=== PATIENT | male | born 1960 | race Caucasian/White ===

== ENCOUNTER 2020-02-01 16:03 | Day surgery (SDC) | payer BC ==
[2020-01-24 14:05] VITALS: BMI 25.8
--- NOTE | 2020-02-01 11:02 | HP ---
History & Physical Update - Physical Physical: No Change - Assessment Assessment: No Change - Plan Plan: No Change (Dr Víctor Greene) Currently as noted:: Dr Víctor Greene 01/24/2020
--- NOTE | 2020-02-01 14:37 | PN ---
Progress Note (short form) - Note Progress Note: 59M s/p LEFT MIGUEL POD #0. -Pain control. -DVT PPx: -Chemical: ASA 81mg PO BID x 6 weeks. -Mechanical: SCD's, ALEXA's. -Incentive spirometry. -PT/OT/Rehab, OOB. -WBAT B/L LE. -(+) Hip abduction pillow. -Maintain hip precautions. -f/u AM labs. -f/u trial of void (8 hours max). -Diet as tolerated. -f/u drain output. -Care per medical hospitalist team. -Discharge planning: f/u [facility] [place] [facility] 7-10 days after discharge; call for appointment: . -Will follow. Micah Daniel MD (Orthopaedic Surgery).
--- NOTE | 2020-02-01 14:41 | OP ---
Operative Note - Note: Operative Date: 02/01/20 Pre-Operative Diagnosis: Left hip DJD Operation: Left MIGUEL Implants: Dasha. Cup - Trident II-Tritanium 52mm. Poly - 52mm, symmetric. Stem - Accolade II, #5, high offset 127 deg NSA. Head - 28mm diameter Biolox/Delta Ceramic, standard length Surgeon: Micah Daniel Handle Rounder Operator: Kishore Dainel Anesthesiologist/WAGE AND SALARY ADMINISTRATOR: Janett Patel Anesthesia: Spinal Specimens Removed: Left femoral head Estimated Blood Loss (mls): 250 Drains & Tubes with Location: 1 x drain HemoVac Fluid Volume Replaced (mls): 900 (Crystalloid) Operative Report Dictated: Yes
[2020-02-01] MEDS: ACETAMINOPHEN 1000 MG/100 ML VIAL (NON FORMULARY) IVPB ONE ×2 (15:07→16:28)
[~2020-02-01 16:03] MED LIST: CEFAZOLIN 2 GM in DEXTROSE 5%-WATER - 50 ML IVPB ONE; EPHEDRINE SULFATE/0.9% NACL/PF 50 MG/10 ML SYRINGE NR ONE; LACTATED RINGERS SOLUTION 1,000 ML IV SCH; LIDOCAINE HCL/PF 2% SDV 5ML VIAL ONE; MAG HYDROX/AL HYDROX/SIMETH 30 ML UNIT-DOSE CUP PO PRN; MAGNESIUM HYDROX 2400MG/30ML ORAL SUSPENSION 30 ML CUP PO PRN; MIDAZOLAM HCL 2 MG/2 ML SINGLE DOSE VIAL ONE; ONDANSETRON 4 MG/2 ML VIAL IVPUSH PRN; ONDANSETRON 4 MG/2 ML VIAL ONE; PROPOFOL 20 ML ONE; ROPIVACAINE HCL 0.5% 30ML VIAL ONE; SODIUM CHLORIDE 0.9% P/F 10 ML VIAL IJ ONE; TRANEXAMIC ACID 1000 MG/10 ML VIAL IVPUSH ONE; TRANEXAMIC ACID 1000 MG/10 ML VIAL ONE; VANCOMYCIN 1 GM in D5W (PRE-DOCKED) 1,000 MG/250 ML IVPB ONE; VANCOMYCIN 1,000 MG VIAL (RESTRICTED TO ID ONLY) ONE; ceFAZolin SODIUM 1 GM VIAL ONE; oxyCODONE HCL 5 MG TABLET PO PRN
[2020-02-01] MEDS: oxyCODONE HCL 5 MG TABLET PO PRN ×2 (18:29→21:00)
[2020-02-01] MEDS: ACETAMINOPHEN 325 MG TABLET (FP) PO SCH (20:45)
[2020-02-01] MEDS: CEFAZOLIN 2 GM/D5W 2 GM/50 ML ML IVPB SCH (20:47)
[2020-02-01] MEDS ORDERED: PATIENT'S OWN MEDICATION (NON-FORMULARY) (Mesalamine [Pentasa] 500 MG) PO SCH ×2 (22:00)
[2020-02-01] MEDS: LOPERAMIDE HCL 2 MG CAPSULE PO SCH (22:38)
[2020-02-01] MEDS: oxyCODONE HCL 10 MG SUSTAINED ACTING TABLET PO SCH (22:38)
[2020-02-01] MEDS: ASPIRIN 81 MG CHEWABLE TABLETS PO SCH (22:38)
[2020-02-01] MEDS: SENNOSIDES/DOCUSATE COMBO (SENNA PLUS) TABLET (UD) PO SCH (22:39)
[2020-02-02] MEDS: traMADol HCL 50 MG TABLET PO PRN ×2 (00:21→08:19)
[2020-02-02] MEDS: ACETAMINOPHEN 325 MG TABLET (FP) PO SCH ×3 (02:21→15:19)
[2020-02-02] MEDS: CEFAZOLIN 2 GM/D5W 2 GM/50 ML ML IVPB SCH ×2 (02:21→07:55)
[2020-02-02] MEDS: oxyCODONE HCL 5 MG TABLET PO PRN ×5 (02:22→15:25)
[2020-02-02] MEDS ORDERED: HYDROmorphone HCl 2 MG/ML VIAL IVPB ONE (03:15)
[2020-02-02 08:06] LABS: CALCIUM 8.1 mg/dl (8.5-10); CREATININE 0.9 mg/dl (0.55-1.3); POTASSIUM 3.6 mmol/L (3.5-5.1)
[2020-02-02 08:11] LABS: HEMATOCRIT 34.2 % (35.4-49); HEMOGLOBIN 11.9 GM/dl (11.7-16.9); MCH 30.6 pg (25.7-33.7); MCHC 34.7 g/dl (32.0-35.9); MEAN CELL VOLUME 88.2 fl (80-96); MEAN PLT VOLUME 7.3 fl (7.5-11.1); PLATELET COUNT 195 K/MM3 (134-434); RBC 3.88 M/mm3 (4.00-5.60); RDW 11.9 % (11.9-15.9); WHITE BLOOD COUNT 10.8 K/mm3 (4.0-10.8)
--- NOTE | 2020-02-02 08:27 | PN ---
Progress Note (short form) - Note Progress Note: Surgery POD#1 right MIGUEL patient seen and examined on AM rounds c/o leg spasm and pain after the spinal wore off. He has not been OOB yet but he is voiding and tolerating his diet. He denies any CP,SOB, N/V/D, fever or chills. Vital Signs Temp 97.8 F 02/02/20 06:56 Pulse 77 02/02/20 06:56 Resp 18 02/02/20 06:56 BP 107/63 02/02/20 06:56 Pulse Ox 96 02/02/20 06:56 Intake & Output 02/01/20 02/01/20 02/02/20 11:59 23:59 11:59 Intake Total 1500 1875 Output Total 750 0 Balance 750 1875 Weight 170 lb Intake: IV 1000 1375 Lactated Ringers Solution 1375 1,000 ml @ 125 mls/hr IV ASDIR CORINNA Rx#: [id number] IVPB 100 Oral 500 400 Output: Drainage 0 0 Left Knee 0 0 Urine 500 Void 500 Estimated Blood Loss 250 Other: Voiding Method Urinal # Unmeasured Voids Void 2 Bowel Movement Yes Height 5 ft 8 in Body Mass Index (BMI) 25.8 Weight Measurement Method Standing Scale CBC, BMP 02/02/20 07:11 02/02/20 07:11 PE: A&Ox3, NAD Unlabored resp on RA Right hip, dressing c/d/i with surrounding tissue intact and no tracking erythema or evidence of collection or active d/c. Drain removed with tip fully intact and no active bleeding from drain site, dressing reinforced. B/L LE compartments soft, supple and non-tender with 5/5 dorsi/plantar flexion with +2 DP pulses Problem List - Problems (1) Status post total hip replacement, left Assessment/Plan: Progress Note: 59M s/p LEFT MIGUEL POD #1, doing well. -Pain control as discussed including home medications -DVT PPx: -Chemical: ASA 81mg PO BID x 6 weeks. -Mechanical: SCD's, ALEXA's. -Incentive spirometry. -PT/OT/Rehab, OOB. -WBAT B/L LE. -(+) Hip abduction pillow. -Maintain hip precautions. -f/u AM labs. -Diet as tolerated. -Care per medical hospitalist team. -Discharge planning: f/u [facility] [place] [facility] 7-10 days after discharge; call for appointment: . Code(s): Z96.642 - PRESENCE OF LEFT ARTIFICIAL HIP JOINT
[2020-02-02] MEDS ORDERED: diazePAM 5 MG TABLET PO SCH (09:00)
[2020-02-02] MEDS ORDERED: PANTOPRAZOLE 40 MG TABLET PO SCH (10:00)
[2020-02-02] MEDS ORDERED: ESCITALOPRAM OXALATE 10 MG TABLET PO SCH (10:00)
[2020-02-02] MEDS: ASPIRIN 81 MG CHEWABLE TABLETS PO SCH (10:46)
[2020-02-02] MEDS: oxyCODONE HCL 10 MG SUSTAINED ACTING TABLET PO SCH (10:47)
[2020-02-02] MEDS: LOPERAMIDE HCL 2 MG CAPSULE PO SCH (11:19)
[2020-02-02] MEDS: SENNOSIDES/DOCUSATE COMBO (SENNA PLUS) TABLET (UD) PO SCH (11:19)
--- NOTE | 2020-02-02 12:01 | HP ---
CHIEF COMPLAINT: Left hip pain HISTORY OF PRESENT ILLNESS: 59 year-old male with a PMH significant for HLD, colitis, kidney stones, anxi ety, and left hip avascular necrosis s/p left total hip arthroplasty on 02/01/[address] Micah Daniel. 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 Smoking: no Alcohol: no Drugs: no Allergies No Known Drug Allergies Allergy (Verified 01/24/20 13:19) Family history: father @ 99 lung cancer; mother @89 heart disease; 1 brother lung cancer, 3 brothers and 1 sister a&w HOME MEDICATIONS: Home Medications Medication Instructions Recorded Ascorbic Acid [Vitamin C] 500 mg PO DAILY 01/24/20 Escitalopram Oxalate [Lexapro -] 10 mg PO DAILY 01/24/20 Loperamide HCl [Imodium -] 4 mg PO BID 01/24/20 Mesalamine [Pentasa] 500 mg PO BID 01/24/20 Multivitamins [Tab-A-Vit -] 1 tab PO DAILY 01/24/20 Tramadol HCl 50 mg PO BID 01/24/20 Aspirin [ASA -] 81 mg PO BID tab.chew 02/02/20 Sennosides/Docusate Sodium 2 tablet PO BID PRN #60 tablet 02/02/20 [Pericolace -] REVIEW OF SYSTEMS CONSTITUTIONAL: Absent: fever, chills, diaphoresis, generalized weakness, malaise, loss of appetite, weight change HEENT: Absent: rhinorrhea, nasal congestion, throat pain, throat swelling, difficulty swallowing, mouth swelling, ear pain, eye pain, visual changes CARDIOVASCULAR: Absent: chest pain, syncope, palpitations, irregular heart rate, lightheadedness, peripheral edema RESPIRATORY: Absent: cough, shortness of breath, dyspnea with exertion, orthopnea, wheezing, stridor, hemoptysis GASTROINTESTINAL: Absent: abdominal pain, abdominal distension, nausea, vomiting, diarrhea, constipation, melena, hematochezia GENITOURINARY: Absent: dysuria, frequency, urgency, hesitancy, hematuria, flank pain, genital pain MUSCULOSKELETAL: Absent: myalgia, arthralgia, joint swelling, back pain, neck pain SKIN: Absent: rash, itching, pallor HEMATOLOGIC/IMMUNOLOGIC: Absent: easy bleeding, easy bruising, lymphadenopathy, frequent infections ENDOCRINE: Absent: unexplained weight gain, unexplained weight loss, heat intolerance, cold intolerance NEUROLOGIC: Absent: headache, focal weakness or paresthesias, dizziness, unsteady gait, seizure, mental status changes, bladder or bowel incontinence PSYCHIATRIC: Absent: anxiety, depression, suicidal or homicidal ideation, hallucinations. PHYSICAL EXAMINATION Vital Signs - 24 hr 02/01/20 02/01/20 02/01/20 14:26 14:30 14:35 Temperature 97.6 F Pulse Rate 64 61 57 L Respiratory 18 21 H 17 Rate Blood Pressure 93/58 L 93/57 L 103/61 O2 Sat by Pulse 99 100 100 Oximetry (%) GENERAL: Awake, alert, and fully oriented, in no acute distress. LUNGS: Breath sounds equal, clear to auscultation bilaterally. No wheezes, and no crackles. No accessory muscle use. HEART: Regular rate and rhythm, normal S1 and S2 ABDOMEN: Soft, nontender, not distended LOWER EXTREMITIES: Surgical dressing c/d/i; ice pack, +flex/extend toes, sensory intact NEUROLOGICAL: Cranial nerves II-XII intact. Normal speech. 02/02/20 02/02/20 07:11 07:11 WBC 10.8 RBC 3.88 L Hgb 11.9 Hct 34.2 L MCV 88.2 MCH 30.6 MCHC 34.7 RDW 11.9 Plt Count 195 MPV 7.3 L Sodium 134 L Potassium 3.6 Chloride 99 Carbon Dioxide 27 Anion Gap 8 BUN 20.0 H Creatinine 0.9 Est GFR (CKD-EPI)AfAm 109.50 Est GFR (CKD-EPI)NonAf 94.48 Random Glucose 129 H Calcium 8.1 L Pre op Hgb 15.6 BUN 20 Cr 0.9 Intra op Vanc 1g x 1; Ancef 2g x 1; Ancef 1g x 1 LR 700mL EBL 250mL ASSESSMENT/PLAN: 59 year-old male with a PMH significant for HLD, colitis, kidney stones, anxiety, and left hip avascular necrosis s/p left total hip arthroplasty on 02/01/[address] Micah Daniel. Left hip avascular necrosis s/p left total hip arthroplasty --POD #1 --perioperative antibiotics complete --pain issue overnight due to spasms, treated with dilaudid 0.mg IVP x 1 and valium q8h prn --ASA 81mg BID --protonix --bowel regimen --incentive spirometry --Hemovac drain out Colitis --continue loperamide, mesalamine Anxiety --continue lexapro FEN Fluids: PO intake adequate Electrolytes: replete as indicated Nutrition: regular diet DVT prophylaxis: OOB, ambulation, SCDs, TEDs, ASA 81mg BID Physical therapy Dispo: continues to require inpatient care. Full code. Visit type - Emergency Visit Emergency Visit: No - New Patient This patient is new to me today: Yes Date on this admission: 02/02/20 - Critical Care Critical Care patient: No
--- NOTE | 2020-02-02 12:01 | DS ---
Physical Exam: SUBJECTIVE: Patient seen and examined OBJECTIVE: Vital Signs Period Temp Pulse Resp BP Sys/Mondragon Pulse Ox Last 24 Hr 97.6 F-98.3 F 56-77 14-21 93-131/53-63 95-100 PHYSICAL EXAM 59 year-old male with a PMH significant for HLD, colitis, kidney stones and left hip avascular necrosis s/p left total hip arthroplasty on 02/01/[address] Micah Daniel. LABS Laboratory Results - last 24 hr 02/02/20 02/02/20 07:11 07:11 WBC 10.8 RBC 3.88 L Hgb 11.9 Hct 34.2 L MCV 88.2 MCH 30.6 MCHC 34.7 RDW 11.9 Plt Count 195 MPV 7.3 L Sodium 134 L Potassium 3.6 Chloride 99 Carbon Dioxide 27 Anion Gap 8 BUN 20.0 H Creatinine 0.9 Est GFR (CKD-EPI)AfAm 109.50 Est GFR (CKD-EPI)NonAf 94.48 Random Glucose 129 H Calcium 8.1 L HOSPITAL COURSE: Date of Admission:02/01/20 Date of Discharge: 02/02/20 59 year-old male with a PMH significant for HLD, colitis, kidney stones, anxiety, and left hip avascular necrosis s/p left total hip arthroplasty on 02/01/[address] Micah Daniel. Left hip avascular necrosis s/p left total hip arthroplasty --perioperative antibiotics complete --pain issue overnight due to spasms, treated with dilaudid 0.mg IVP x 1 and valium q8h prn; discharged to home with script for valium, patient already has percocet at home --ASA 81mg BID x 6 weeks Colitis --stable --continued loperamide, mesalamine Anxiety --continued lexapro Minutes to complete discharge: 35 Discharge Summary Problems reviewed: Yes Reason For Visit: OSTEOARTHRITIS LEFT HIP Condition: Improved - Instructions Diet, Activity, Other Instructions: Dr. Daniel Discharge Instructions for Hip Replacement Post Operative Instructions Physical activity Physical Therapist will come to your home for the first 5 days. You will be set up with outpatient PT at your first post-operative visit. Use assistive devices for ambulation at all times. Weight bearing as tolerated on your surgical side. Wound care Leave your surgical dressing in place. Do not change the dressing until seen by your surgeon in the office. No baths or showers. Do not submerge your incision. Do not apply any ointments or lotions to your incision. Please call the office if your dressing is soiled/dirty or is falling off. Apply Graduated Compression Stockings (TEDS) to both lower extremities-remove daily for hygiene ONLY. Diet There are no dietary restrictions. Eat healthy, high-fiber foods. Drink 6 to 8 glasses of liquid each day. This will assist in keeping your bowels are regular. Pain management Any pain prescription medication ordered should be taken as prescribed for moderate to severe pain. Do not take additional Tylenol while taking Percocet. Posterior Hip Precautions: Do not cross the leg you had surgery on over your other leg. (Do not cross your legs.)Use an elevated toilet seat. Do not sit on low chairs or beds. Use purple pillow (abductor) when lying in bed. Take Aspirin 81 mg two times a day for a total of 6 weeks to prevent blood c lots. Call Dr. Daniel for any of the following: Severe pain not relieved by medication Fever of 101 or higher Excessive bleeding or drainage on dressing Inability to urinate If you experience chest pain or shortness of breath, please seek emergency care immediately. Please call the office at to confirm your post-op appointment for the week following surgery. Disposition: HOME - Home Medications Comprehensive Discharge Medication List: Ambulatory Orders Ascorbic Acid [Vitamin C] 500 mg PO DAILY 01/24/20 Escitalopram Oxalate [Lexapro -] 10 mg PO DAILY 01/24/20 Loperamide HCl [Imodium -] 4 mg PO BID 01/24/20 Mesalamine [Pentasa] 500 mg PO BID 01/24/20 Multivitamins [Tab-A-Vit -] 1 tab PO DAILY 01/24/20 Tramadol HCl 50 mg PO BID 01/24/20 Aspirin [ASA -] 81 mg PO BID tab.chew 02/02/20 Sennosides/Docusate Sodium [Pericolace -] 2 tablet PO BID PRN #60 tablet 02/02/20 Prescription Drug Monitoring Program (I-STOP) results: I-STOP not reviewed This patient is new to me today: No Emergency Visit: No Critical Care patient: No - Discharge Referral Referred to [facility] Med P.C.: No
--- NOTE | 2020-02-02 12:51 | PN ---
Progress Note (short form) - Note Progress Note: POD #1 s/p LTHR under spinal with paravertebral block. Initially did well and then developed increasing pain overnight with muscle spasms. Started patient on valium for muscle spasms. Continue pain Rx. All questions answered.
[2020-02-02] MEDS ORDERED: CYCLOBENZAPRINE HCL 10 MG TABLET (FP) PO SCH (14:00)
[2020-02-02 14:28] VITALS: BP 116/53; PULSE 74; TEMP 97.8
[2020-02-02] MEDS ORDERED: diazePAM 2 MG TABLET PO ONE (14:30)
[2020-02-02] MEDS ORDERED: diazePAM 5 MG TABLET PO PRN (17:00)
--- NOTE | 2020-02-02 20:54 | OP ---
DATE OF OPERATION: DATE OF DICTATION: 02/01/2020 SURGEON: Micah Daniel MD LAMINATION BUILDER: Kishore Daniel MD, and nursing staff [facility]. PREOPERATIVE DIAGNOSIS: Osteoarthritis left hip. POSTOPERATIVE DIAGNOSIS: Osteoarthritis left hip. OPERATION PERFORMED: Left cementless total hip arthroplasty ([place]). (93051) ANESTHESIA: Conscious sedation with spinal anesthesia and peripheral nerve block. ANTIBIOTICS GIVEN: 2 g Kefzol, 1 g vancomycin preoperative; 1 g Kefzol given at the time of seating the femoral implants. BLOOD LOSS: Approximately 200 mL. OPERATION DETAILS: The patient was correctly identified, brought in the operating room. Left lower extremity was prepped, draped in the routine manner with Betadine scrub solution, wiped off with alcohol, DuraPrep applied. A free drape exposing the entire proximal thigh performed. Timeout was called. Imaging was available for intraoperative evaluation. The hip and knee flexed at about 45 degrees. The incision was centered over the greater trochanter. The dissection was taken through the skin, subcutaneous tissue, and the fascia. The fascia was opened. The gluteus medius muscle clearly identified. Charnley retractors placed in the subfascial plane providing excellent exposure. By using an anterior biased direct lateral approach, the acetabulum was exposed by seating the inferior acetabular retractor just at the level of the teardrop, that is into the apex of the obturator foramen. The anterior retractor was placed over the lip of the anterior acetabulum. The posterior retractor was placed posteriorly. The capsule was not violated. The labrum was excised. A Charnley pin helped to hold the hip abducted proximally. This was placed in the ilium. The acetabulum was beautifully exposed. Reaming was to size 50 and a size 52 [place] cementless cup inserted. Solid press-fit fixation achieved. Position of the cup was about 10 degrees anteverted and closed at approximately 40 degrees. A 28-mm polyethylene liner was inserted. The reaming of the acetabulum was performed meticulously to healthy cancellous bone. The blush of the ilium, ischium and pubic bone was readily noted to be bleeding, was not violated, but all pulvinar material cleared off it appropriately. Once the acetabulum had been completed, the hip was adducted and externally rotated. The hip adductors held out of harm's way with a Hohmann retractor. Box cut made in the greater trochanter. The starter reamer was inserted. A lateralized reamer was utilized to lateralize the proximal bone bed while resectioning bone bed appropriately. A Machina Accolade stem broaching was for this. Broaching was to size 5, and a size 5 Accolade high- offset stem with a 127-mm neck shaft angle was seated. The trialing of the broach with the appropriate neck and a standard 28-mm head was utilized; this revealed equal leg length on the table, matching external rotation of the left lower extremity to the right lower extremity, and no dislocatability in flexion, adduction, internal rotation, as well as extension and external rotation. Once we were happy with the position of the implants, the bone and tissues were thoroughly lavaged. The broaches were removed. The definitive implant was inserted, this to the point where it simulated the broaches. A standard ceramic head 28 mm with 0 lengthening was inserted. This went in the trunnion; the trunnion was meticulously dried prior to the application of the head. The hip was relocated in position. The leg length, the axial alignment, and the range of location again performed just as we did as noted above in the earlier text. No dislocatability in flexion, adduction, internal rotation, as well as extension and external rotation. Closure was as follows. Hip abductor mechanism, that is with gluteus medius and vastus lateralis were all sutured with number 1 Vicryl, fascia with 1 Vicryl, subcutaneous tissue 1 Vicryl, skin 3-0 Monocryl and Steri-Strips. Drain was a 1/8th-inch Hemovac superficial. No complications. Operation went extremely well. X-rays revealed textbook perfect seating of the implants. MD MELANIE Fleming/[id number] MTDD
--- NOTE | 2020-02-03 18:18 | PATH ---
Surgical Pathology Report Patient Name: YOLY PAUL Med. Rec. #: [id number] /Age/Gender: 1960 (Age: 59) / M Account: [id number] Location: [facility] MED-SURG Taken: 02/01/2020 Received: 02/01/2020 Reported: 02/03/2020 Physicians: Micah Daniel M.D. Specimen(s) Received LEFT FEMORAL HEAD Clinical History Osteoarthritis left hip Final Diagnosis FEMORAL HEAD, LEFT, TOTAL HIP REPLACEMENT: DEGENERATIVE JOINT DISEASE. Electronically Signed Katie Cruz M.D. Gross Description Received in formalin, labeled "left femoral head," is a 4.3 x 4.3 x 4.1 cm. femoral head with a 1 cm in length portion of femoral neck attached. The margin of resection is smooth. No areas of eburnation are identified. The articular surface is cha-yellow and focally granular. The underlying trabecular bone is yellow and hard. A housing management representative section is submitted in one cassette, following decalcification. /02/02/2020 [facility]/02/02/2020
== END 2020-02-02 16:42 | disposition home or self-care (01) ==
LOC: FASUSAT 16:03 → FM/S 16:04 → FASUSAT 02-02 16:42
PROVIDERS: ATTEND Orthopaedic Surgery Orthopaedic Surgery of the Spine
PROC: 0SRB0JA Replacement of Left Hip Joint with Synthetic Substitute, Uncemented, Open Approach (ICD-10-PCS; principal; 2020-02-01 12:51)
DX: M16.12 Unilateral primary osteoarthritis, left hip (principal)
CPT/HCPCS: 36415; 73502-TC-LT-FY; 80048; 85027; 88305-TC; 88311-TC; 94760; 97116-GP; 97163-GP; J0131